=== PATIENT | female | born 1975 | race Two or more races ===

== ENCOUNTER 2025-02-12 20:31 | Inpatient (IN) | payer MEDICAID, OTHER ==
[~2025-02-12] VITALS: Ht 160 cm; Wt 100.8 kg
--- NOTE | 2025-02-12 21:48 | ED.PDOC ---
History of Present Illness HPI Comments 49-year-old female with PMHx DM presents with a chief complaint of dehydration, nausea, and dizziness since Sunday February 09, 2025. Patient is complaining of elevated glucose levels int he 300-400s. Patient is A&Ox4, VSS, RR even and unlabored on RA. Patient reports dyspnea on exertion when going upstairs. She states she has been compliant with metformin, glyburide at home for diabetes. Chief Complaint: Hyperglycemia Time Seen by MD: 21:28 Reviewed Notes: Medications, Allergies Allergies: Coded Allergies: NO KNOWN ALLERGIES (Unverified , 02/12/25) Information Source: Patient Mode of Arrival: Ambulatory Severity: Moderate Timing: Days Duration: Since onset Prehospital treatment: None Vital Signs Vital Signs Date Time Temp Pulse Resp B/P (MAP) Pulse Ox O2 Delivery O2 Flow Rate FiO2 02/12/25 22:16 98.7 79 19 137/87 (104) 97 98.7 Physical Exam General: Awake, alert and oriented. No acute distress. Skin: Skin in warm, dry and intact. Appropriate color for ethnicity. HEENT: The head is normocephalic and atraumatic. Conjunctivae are clear without exudates or hemorrhage. Sclera is non-icteric. EOM are intact. No signs of nystagmus. Eyelids are normal in appearance without swelling or lesions. Oral mucosa is pink and moist Neck: The neck is supple with normal range of motion. No JVD. Cardiac: Heart rate and rhythm are normal. No murmurs, gallops, or rubs are auscultated. Respiratory: No signs of respiratory distress. Lung sounds are clear in all lobes bilaterally without rales, rhonchi, or wheezes. Abdominal: Abdomen is soft, non-tender without distention. Bowel sounds are present and normoactive in all four quadrants. Extremities: Upper and lower extremities are atraumatic in appearance without deformity or edema. Neurological: The patient is awake, alert and oriented to person, place, and time with normal speech. Speech is clear. There is no facial asymmetry. Romberg test positive. Normal pmwnca-st-pejy test. Normal gait. Psychiatric: Appropriate mood and affect. Good judgement and insight. Review of Systems: REVIEW OF SYSTEMS: No fever, no chills, or fatigue HEENT: No sore throat, no earache, no congestion, no neck pain. Positive blurred vision Cardiac: No chest pain. No palpitations. Lungs: Positive dyspnea on exertion, no cough. GI: No nausea, no vomiting, no diarrhea, positive constipation, positive left- sided abdominal pain after fall : No dysuria, positive frequency, no urgency. No hematuria. Musculoskeletal: No joint pain , no joint swelling, no extremity edema. Skin: No rash, no itching. Neuro: Positive headache, positive dizziness, no weakness Psych: Positive trouble sleeping Past Medical History PAST MEDICAL HISTORY: DM Surgical History: Denies all surgeries [employer] History: Denies all [employer] Hx Family History Family History: Reviewed,noncontributory to illness Social History Smoker: Non-Smoker Alcohol: Denies ETOH Use Drugs: Denies Drug Use Lives In: Home Was a procedure done? Was a procedure done?: No EKG EKG : Pulse Rate (adult): 73 [place]: Normal Cardiac Rhythm: NSR Block: None Hypertrophy: None ST: Normal Comments No STEMI Differential Dx Considerations may include: Differential diagnoses considered include but are not limited to cardiac structural disease, arrhythmia, acute coronary syndrome, orthostasis, pulmonary embolism, dissection, seizure, basilar stroke, other. X-Ray, Labs, Meds, VS Vital Signs Date Time Temp Pulse Resp B/P (MAP) Pulse Ox O2 Delivery O2 Flow Rate FiO2 02/12/25 22:16 98.7 79 19 137/87 (104) 97 98.7 02/12/25 22:03 73 02/12/25 21:44 73 02/12/25 20:50 97.8 72 12 120/73 (89) 98 97.8 Lab Test 02/12/25 21:40 02/12/25 21:35 02/12/25 20:56 02/12/25 00:00 Range/Units Blood Gas Specimen Type Arterial Blood Gas Sample Site Right radial Blood Gas Patient Temperature 37.0 Arterial Blood Date Drawn [id number] Arterial Blood pH 7.473 H 7.350-7.450 Arterial Blood Partial Pressure CO2 37.4 32.0-45.0 mmHg Arterial Blood Partial Pressure O2 91.5 83.0-108.0 mmHg Arterial Blood HCO3 26.8 21.0-28.0 mmol/L Arterial Blood Oxygen Saturation 97.1 94.0-98.0 % Arterial Blood Base Excess 3.2 H -2.0-3.0 mmol/L Arterial Blood Oxyhemoglobin 95.8 94.0-98.0 % Arterial Blood Carboxyhemoglobin 1.0 0.5-1.5 % Arterial Blood Methemoglobin 0.3 0.0-1.5 % [place] Test Positive Blood Gas Total Hemoglobin 14.10 12.0-16.0 g/dL Blood Gas Modality Room air Blood Gas Spontaneous Rate 22 FiO2 % 21.0 White Blood Count 5.5 4.4-10.8 10^3/uL Red Blood Count 4.79 4.0-5.20 10^6/uL Hemoglobin 14.3 12.2-16.2 g/dL Hematocrit 42.7 36.0-46.0 % Mean Corpuscular Volume 89.1 80.0-100.0 fL Mean Corpuscular Hemoglobin 29.8 28.0-32.0 pg Mean Corpuscular Hemoglobin Concent 33.5 32.0-36.0 g/dL Red Cell Distribution Width 14.1 11.8-14.3 % Platelet Count 148 140-450 10^3/uL Mean Platelet Volume 8.8 6.9-10.8 fL Neutrophils (%) (Auto) 52.8 37.0-80.0 % Lymphocytes (%) (Auto) 38.8 10.0-50.0 % Monocytes (%) (Auto) 6.8 0.0-12.0 % Eosinophils (%) (Auto) 1.0 0.0-7.0 % Basophils (%) (Auto) 0.6 0.0-2.0 % Neutrophils # (Auto) 2.9 1.6-8.6 10 ^3/uL Lymphocytes # (Auto) 2.1 0.4-5.4 10 ^3/uL Monocytes # (Auto) 0.4 0-1.3 10 ^3/uL Eosinophils # (Auto) 0.1 0-0.8 10 ^3/uL Basophils # (Auto) 0 0-0.2 10 ^3/uL Nucleated Red Blood Cells 0.1 % Sodium Level 136 136-145 mmol/L Potassium Level 5.2 H 3.5-5.1 mmol/L Chloride Level 102 98-107 mmol/L Carbon Dioxide Level 27 20-31 mmol/L Anion Gap 7 5-15 Blood Urea Nitrogen 24 H 9-23 mg/dL Creatinine 1.48 H 0.550-1.02 mg/dL Glomerular Filtration Rate Calc 44 >90 mL/min BUN/Creatinine Ratio 16.2 10.0-20.0 Serum Glucose 391 H 74-106 mg/dL Calcium Level 10.9 H 8.7-10.4 mg/dL Magnesium Level 1.6 1.6-2.6 mg/dL Total Bilirubin 0.2 0.2-1.0 mg/dL Aspartate Amino Transferase (AST) 14 13-40 U/L Alanine Aminotransferase (ALT) 34 7-40 U/L Alkaline Phosphatase 112 46-116 U/L Troponin I High Sensitivity 3 L </=34 ng/L B-Type Natriuretic Peptide 17.88 0-100 pg/mL Total Protein 7.0 5.7-8.2 g/dL Albumin 4.2 3.2-4.8 g/dL Beta-Hydroxybutyric Acid 0.172 < 0.4 mmol/L POC Glucose 374 H 70-106 mg/dl Urine Color Colorless Yellow Urine Clarity Clear Clear Urine pH 7.0 5.0-9.0 Urine Specific [place] 1.020 1.001-1.035 Urine Protein Negative Negative Urine Ketones Negative Negative Urine Blood Negative Negative /uL Urine Nitrite Negative Negative Urine Bilirubin Negative Negative Urine Urobilinogen Normal Negative mg/dL Urine Leukocyte Esterase 2+ Negative /uL Urine RBC 3 0 - 4 /hpf Urine Microscopic WBC 8 H 0-5 /HPF Urine Squamous Epithelial Cells Few <5 /hpf Urine Bacteria None seen None Seen /hpf Urine Glucose 4+ H Normal mg/dL Current Medications Medications (Trade) Dose Ordered Sig/Arik Route Start Time Stop Time Status Last Admin Sodium Chloride 1,000 ml @ 1,000 mls/hr Q1H ONCE IV 02/12/25 21:30 02/12/25 22:29 DC 02/12/25 22:16 Images Reviewed?: Images reviewed and evaluated by me (Independent interpretation of chest x-ray: No acute disease) Time of 1ST Reevaluation: 21:58 Reevaluation 1ST: Unchanged Patient Education/Counseling: Need For Follow Up Family Education/Counseling: No Family Present Departure 1 Departure Time of Disposition: 23:30 Impression: Primary Impression: Hyperkalemia Additional Impressions: Hyperglycemia Acute kidney injury UTI (urinary tract infection) Disposition: ADMITTED INPATIENT Condition: Stable Comments Patient admitted to hospitalist service for further treatment, evaluation and monitoring. Extensive evaluation was performed in attempt to identify or rule out: (See differential diagnosis section) The following tests were ordered, and results were reviewed by me and discussed with patient: (See diagnostic results section) The following test were independently interpreted by me: EKG, chest x-ray I reviewed and agreed with the following test results read by other providers: Chest x-ray I reviewed the following notes from the pt's past medical encounters: N/A Additional information was gathered from interviewing the following independent historians: N/A Discussion of management or test interpretation with external physician/other qualified health youth care worker: N/A Addressed an acute or chronic illness that poses a threat to life or bodily function: Acute kidney injury, hyperglycemia, hyperkalemia Decision regarding hospitalization or escalation of hospital level of care: Risk and benefits of admission for further treatment of patient's condition was considered. Due to patient's current clinical condition, high risk of decline and poor outcome if discharged and need for further inpatient management and monitoring, patient will be admitted to the hospital. Drug therapy requiring intensive monitoring for toxicity: IV insulin Parenteral controlled substances: N/A Decision regarding elective major surgery with identified patient or procedure risk factors: N/A Decision regarding emergency major surgery: N/A Decision not to resuscitate or to de-escalate care because of poor prognosis: N/A Diagnosis or treatment significantly limited by social determinants of health: N/A Critical Care Note Critical Care Time?: No Stability Stability form required: No Heart Score Heart Score: Heart Score Response (Comments) Value History N/A 0 EKG N/A 0 Age N/A 0 Risk Factors N/A 0 Troponin N/A 0 Total 0 I personally scribed for DOUGLAS NICHOLS MD ([facility]) on 02/12/25 at 21:48. Electronically submitted by Chuy Luu ([email or web address]). I personally scribed for DOUGLAS NICHOLS MD ([email or web address]) on 02/12/25 at 22:03. Electronically submitted by Chuy Luu ([email or web address]). DOUGLAS NICHOLS MD February 12, 2025 21:48
[2025-02-12 21:50] LABS: Base Excess 3.2 mmol/L (-2.0-3.0)
[2025-02-12 21:54] LABS: Basophils # (auto) 0 10 ^3/uL (0-0.2); Basophils % (auto) 0.6 % (0.0-2.0); Eosinophils # (auto) 0.1 10 ^3/uL (0-0.8); Hematocrit 42.7 % (36.0-46.0); Hemoglobin 14.3 g/dL (12.2-16.2); Lymphocytes # (auto) 2.1 10 ^3/uL (0.4-5.4); Lymphocytes % (auto) 38.8 % (10.0-50.0); Mean Corpuscular Hemoglobin 29.8 pg (28.0-32.0); Mean Corpuscular Hgb Conc. 33.5 g/dL (32.0-36.0); Mean Corpuscular Volume 89.1 fL (80.0-100.0); Monocytes # (auto) 0.4 10 ^3/uL (0-1.3); Monocytes % (auto) 6.8 % (0.0-12.0); Neutrophils # (auto) 2.9 10 ^3/uL (1.6-8.6); Neutrophils % (auto) 52.8 % (37.0-80.0); Nucleated Red Blood Cells % 0.1 %; Platelet Count (auto) 148 10^3/uL (140-450); Red Blood Cells 4.79 10^6/uL (4.0-5.20); Red Cell Distribution Width 14.1 % (11.8-14.3); White Blood Cell 5.5 10^3/uL (4.4-10.8)
[2025-02-12 21:56] LABS: Urine Bacteria None Seen /hpf (None Seen)
[2025-02-12 22:04] LABS: Alanine Aminotransferase 34 U/L (7-40); Albumin 4.2 g/dL (3.2-4.8); Alkaline Phosphatase 112 U/L (46-116); Anion Gap 7 (5-15); Aspartate Aminotransferase 14 U/L (13-40); BUN/Creatinine Ratio 16.2 (10.0-20.0); Carbon Dioxide 27 mmol/L (20-31); Chloride 102 mmol/L (98-107); Magnesium 1.6 mg/dL (1.6-2.6); Sodium 136 mmol/L (136-145)
[2025-02-12 22:08] LABS: Bilirubin, Total 0.2 mg/dL (0.2-1.0); Blood Urea Nitrogen 24 mg/dL (9-23); Calcium 10.9 mg/dL (8.7-10.4); Glucose 391 mg/dL (74-106); Potassium 5.2 mmol/L (3.5-5.1)
[2025-02-12 22:09] LABS: Urine Blood Negative /uL (Negative); Urine Clarity Clear (Clear); Urine Color Colorless (Yellow); Urine Protein, UAD Negative (Negative); Urine Squamous Epithelial Cell FEW /hpf (<5); Urine Urobilinogen Normal (Negative); Urine WBC 8 /HPF (0-5)
--- NOTE | 2025-02-12 22:13 | DVH ---
CHEST RADIOGRAPH Indication: SHORTNESS OF BREATH WITH EXERTION Technique: Single frontal view of the chest was obtained COMPARISON: None FINDINGS: Lines and Tubes: None Lungs: Clear Pleura: No effusion. No pneumothorax. Cardiomediastinal contours: Unremarkable Bones: Unremarkable IMPRESSION: No abnormality.
[2025-02-12] MEDS: SODIUM CHLORIDE 0.9% 1,000 ML IV ONE (22:16)
[2025-02-12] MEDS: ACCU-CHEK COMFORT CURVE STRIP VI STA (23:36)
[2025-02-12] MEDS: InsuLIN REG 1unit/0.01ml Soln (100units/ml) IV ONE (23:45)
[2025-02-12] MEDS: DEXTROSE (50%) 50ML SYRG IV ONE (23:45)
[2025-02-13] MEDS ORDERED: MORPHINE SULFATE INJ 2 MG/ml SYRG IV PRN
[2025-02-13] MEDS: InsuLIN REG 1unit/0.01ml Soln (100units/ml) SC SCH
[2025-02-13] MEDS ORDERED: NITROGLYCERIN 0.4 MG SL TAB SL PRN
[2025-02-13] MEDS ORDERED: ACETAMINOPHEN 325 MG TAB PO PRN
[2025-02-13] MEDS ORDERED: DEXTROSE (50%) 50ML SYRG IV PRN
[2025-02-13] MEDS: ACCU-CHEK COMFORT CURVE STRIP VI SCH
[2025-02-13] MEDS ORDERED: ONDANSETRON HCL 4 MG/2 ML VIAL IV PRN
[2025-02-13] MEDS: DEXTROSE (50%) 50ML SYRG IV ONE (00:43)
[2025-02-13] MEDS: CEFEPIME 1GM/ 50ML 50 ML IV ONE (00:54)
[2025-02-13] MEDS: SODIUM CHLORIDE 0.9% 1,000 ML IV ONE ×2 (00:54→00:55)
[2025-02-13] MEDS: ACCU-CHEK COMFORT CURVE STRIP VI ONE (01:00)
--- NOTE | 2025-02-13 01:20 | DVHHP2 ---
History of Present Illness Reason for Visit: Generalized weakness History of Present Illness 49-year-old female presents for evaluation of generalized weakness. Patient reports a three day history of having elevated blood sugars greater than 400. She states feeling dehydrated and dizzy with fatigue as well. She reports frequ ent urination. Denies dysuria or hematuria. No abdominal pain, nausea or vomiting. No cardiac or respiratory symptoms. Past Medical History Hypertension diabetes mellitus Past Surgical History Denies Family History Noncontributory Smoke: No (Impression) ALCOHOL: none Drugs: None (CT without) Lives: with Family Review of Systems Review of Systems Review of systems are currently negative otherwise addressed in HPI. Allergies: Coded Allergies: NO KNOWN ALLERGIES (Unverified , 02/12/25) Medications Current Medications Medications Dose Ordered Sig/Arik Route Start Time Stop Time Status Last Admin Dose Admin Ceftriaxone Sodium 50 ml @ 100 mls/hr DAILY@09 IV 02/13/25 09:00 Losartan Potassium 25 mg DAILY PO 02/13/25 10:00 Diagnostic Test (Pha) 1 strip IQ4HR 02/13/25 00:00 02/13/25 00:00 1 STRIP Insulin Human Regular IQ4HR SC 02/13/25 00:00 Dextrose 50 ml UD PRN IV 02/13/25 00:00 Ondansetron HCl 4 mg Q4HP PRN IV 02/13/25 00:00 Acetaminophen 650 mg Q6HP PRN PO 02/13/25 00:00 Nitroglycerin 0.4 mg Q5MINP PRN SL 02/13/25 00:00 Morphine Sulfate 2 mg Q30M PRN IV 02/13/25 00:00 Exam Vital Signs Vital Signs Date Time Temp Pulse Resp B/P (MAP) Pulse Ox O2 Delivery O2 Flow Rate FiO2 02/13/25 00:13 70 20 96 Room Air 02/13/25 00:13 97.9 125/74 (91) 97.9 Exam Gen: 49-year-old female who arachnoid hemorrhage noted in mild distress Skin: Warm, dry, normal color and texture, no rash. HEENT: Normocephalic atraumatic, mucous membranes moist and pink. Neck: Cervical and supraclavicular nodes normal without enlargement, trachea is midline, thyroid gland is normal without masses. Pulmonary: Clear to auscultation and percussion bilaterally. Cardiac: Regular rate and rhythm. No murmur Abdomen: Soft, nontender, nondistended, bowel sounds present all 4 quadrants, no guarding, no rigidity, no organomegaly. Extremities: No cyanosis, clubbing, no edema Neuro: Cranial nerves II through XII grossly intact, normal affect and speech, no focal motor deficits. Labs/Xrays ORDERING PHYSICIAN: DOUGLAS NICHOLS MD PROCEDURE(s): CXR1 - CHEST XRAY 1 VIEW REASON: SHORTNESS OF BREATH WITH EXERTION ORDER NUMBER(s): [id number], ACCESSION NUMBER(s): [id number] CHEST RADIOGRAPH Indication: SHORTNESS OF BREATH WITH EXERTION Technique: Single frontal view of the chest was obtained COMPARISON: None FINDINGS: Lines and Tubes: None Lungs: Clear Pleura: No effusion. No pneumothorax. Cardiomediastinal contours: Unremarkable Bones: Unremarkable IMPRESSION: No abnormality. Labs Test 02/12/25 21:40 02/12/25 21:35 02/12/25 20:56 02/12/25 00:00 Range/Units Blood Gas Specimen Type Arterial Blood Gas Sample Site Right radial Blood Gas Patient Temperature 37.0 Arterial Blood Date Drawn [id number] Arterial Blood pH 7.473 H 7.350-7.450 Arterial Blood Partial Pressure CO2 37.4 32.0-45.0 mmHg Arterial Blood Partial Pressure O2 91.5 83.0-108.0 mmHg Arterial Blood HCO3 26.8 21.0-28.0 mmol/L Arterial Blood Oxygen Saturation 97.1 94.0-98.0 % Arterial Blood Base Excess 3.2 H -2.0-3.0 mmol/L Arterial Blood Oxyhemoglobin 95.8 94.0-98.0 % Arterial Blood Carboxyhemoglobin 1.0 0.5-1.5 % Arterial Blood Methemoglobin 0.3 0.0-1.5 % [place] Test Positive Blood Gas Total Hemoglobin 14.10 12.0-16.0 g/dL Blood Gas Modality Room air Blood Gas Spontaneous Rate 22 FiO2 % 21.0 White Blood Count 5.5 4.4-10.8 10^3/uL Red Blood Count 4.79 4.0-5.20 10^6/uL Hemoglobin 14.3 12.2-16.2 g/dL Hematocrit 42.7 36.0-46.0 % Mean Corpuscular Volume 89.1 80.0-100.0 fL Mean Corpuscular Hemoglobin 29.8 28.0-32.0 pg Mean Corpuscular Hemoglobin Concent 33.5 32.0-36.0 g/dL Red Cell Distribution Width 14.1 11.8-14.3 % Platelet Count 148 140-450 10^3/uL Mean Platelet Volume 8.8 6.9-10.8 fL Neutrophils (%) (Auto) 52.8 37.0-80.0 % Lymphocytes (%) (Auto) 38.8 10.0-50.0 % Monocytes (%) (Auto) 6.8 0.0-12.0 % Eosinophils (%) (Auto) 1.0 0.0-7.0 % Basophils (%) (Auto) 0.6 0.0-2.0 % Neutrophils # (Auto) 2.9 1.6-8.6 10 ^3/uL Lymphocytes # (Auto) 2.1 0.4-5.4 10 ^3/uL Monocytes # (Auto) 0.4 0-1.3 10 ^3/uL Eosinophils # (Auto) 0.1 0-0.8 10 ^3/uL Basophils # (Auto) 0 0-0.2 10 ^3/uL Nucleated Red Blood Cells 0.1 % Sodium Level 136 136-145 mmol/L Potassium Level 5.2 H 3.5-5.1 mmol/L Chloride Level 102 98-107 mmol/L Carbon Dioxide Level 27 20-31 mmol/L Anion Gap 7 5-15 Blood Urea Nitrogen 24 H 9-23 mg/dL Creatinine 1.48 H 0.550-1.02 mg/dL Glomerular Filtration Rate Calc 44 >90 mL/min BUN/Creatinine Ratio 16.2 10.0-20.0 Serum Glucose 391 H 74-106 mg/dL Calcium Level 10.9 H 8.7-10.4 mg/dL Magnesium Level 1.6 1.6-2.6 mg/dL Total Bilirubin 0.2 0.2-1.0 mg/dL Aspartate Amino Transferase (AST) 14 13-40 U/L Alanine Aminotransferase (ALT) 34 7-40 U/L Alkaline Phosphatase 112 46-116 U/L Troponin I High Sensitivity 3 L </=34 ng/L B-Type Natriuretic Peptide 17.88 0-100 pg/mL Total Protein 7.0 5.7-8.2 g/dL Albumin 4.2 3.2-4.8 g/dL Beta-Hydroxybutyric Acid 0.172 < 0.4 mmol/L POC Glucose 374 H 70-106 mg/dl Urine Color Colorless Yellow Urine Clarity Clear Clear Urine pH 7.0 5.0-9.0 Urine Specific [place] 1.020 1.001-1.035 Urine Protein Negative Negative Urine Ketones Negative Negative Urine Blood Negative Negative /uL Urine Nitrite Negative Negative Urine Bilirubin Negative Negative Urine Urobilinogen Normal Negative mg/dL Urine Leukocyte Esterase 2+ Negative /uL Urine RBC 3 0 - 4 /hpf Urine Microscopic WBC 8 H 0-5 /HPF Urine Squamous Epithelial Cells Few <5 /hpf Urine Bacteria None seen None Seen /hpf Urine Glucose 4+ H Normal mg/dL Assessment/Plan Assessment/Plan Assessment Uncontrolled diabetes mellitus more Acute kidney injury Urinary tract infection Dehydration Plan Admit the patient to [facility] [place] the hospitalist Maintenance IV fluids Rocephin Q.4 hour Accu-Cheks with moderate coverage Continue treatment per orders. Plan discussed with: Patient My Orders Orders - NEEMA NUNN AGACNP Procedure Category Date Status Time Ceftriaxone 1gm/50ml PHA 02/13/25 In Process D5w (Rocephin) 09:00 Sodium Chloride 0.9% PHA 02/13/25 In Process 00:00 Losartan Tablet PHA 02/13/25 In Process (Cozaar Tablet) 10:00 Glucose Blood PHA 02/13/25 In Process (Accu-Chek Comfort 00:00 Insulin R (Human) PHA 02/13/25 In Process (Insulin R) 00:00 Dextrose 50% Syringe PHA 02/13/25 In Process 00:00 Admit ADMIT 02/12/25 Transmitted 23:50 Ondansetron Hcl PHA 02/13/25 In Process (Zofran) 00:00 Condition: Stable MARGARITA 02/12/25 In Process 23:50 Acetaminophen Tablet PHA 02/13/25 In Process (Tylenol Tablet) 00:00 Bedrest With Bathroom MARGARITA 02/12/25 In Process Privileg 23:50 Nitroglycerin PHA 02/13/25 In Process Sublingual (Ntrostat 00:00 Morphine Sulfate PHA 02/13/25 In Process Injection 00:00 Stat Ekg For Chest MARGARITA 02/12/25 In Process Pain 23:50 Notify Md Of Changes [facility] 02/12/25 In Process From Base 23:50 Log Deckman For [facility] 02/12/25 In Process 24 Hours 23:50 Emergency Dysrhythmia [facility] 02/12/25 In Process Protocol 23:50 Rhythm Strips Once [facility] 02/12/25 In Process Every Shift 23:50 Oxygen By Nasal RT 02/12/25 Transmitted Cannula 23:50 Date of Service: February 12, 2025 Billing Provider: NEEMA NUNN Common Visit Codes: [id number] INP/OBS CARE (MOD) NEEMA NUNN February 13, 2025 01:20
[2025-02-13 02:09] VITALS: PULSE 69; RESP 12; O2SAT 97
--- NOTE | 2025-02-13 06:58 | ECG ---
[facility] Test Date: 2025-02-12 Test Time: 21:44:39 Pat Name: JOSÉ ROBLES Department: ED Room: [facility]24[facility] Gender: F Drive Thru Order Taker: lul : 1975 Requested By: DOUGLAS NICHOLS Order Number: [id number] Reading MD: Gilmer Pina Measurements Intervals [place] Rate: 73 P: 45 [place]: 147 QRS: -11 QRSD: 82 T: 19 QT: 372 QTc: 410 Interpretive Statements Sinus rhythm Low voltage, precordial leads Consider anterior infarct Electronically Signed On 02-15-2025 20:47:13 PDT by Gilmer Pina Please click the below link to view image of tracing.
[2025-02-13] MEDS: cefTRIAXone 1GM/50ML D5W 50 ML IV SCH (08:10)
[2025-02-13] MEDS: LOSARTAN POTASSIUM 25 MG TAB PO SCH (11:30)
--- NOTE | 2025-02-13 15:01 | DVHPN2 ---
Subjective 49-year-old female came for elevated blood glucose and frequent urination and dizziness Changes from previous H/P or p: Changes Objective Vitals Vital Signs Date Time Temp Pulse Resp B/P (MAP) Pulse Ox O2 Delivery O2 Flow Rate FiO2 02/13/25 11:31 87 15 110/67 (81) 98 02/13/25 07:34 97.3 97.3 02/13/25 02:09 Room Air* 0 21 Intake/Output Intake and Output 02/13/25 07:00 Intake Total 1650.0 ml Balance 1650.0 ml Intake IV Total 1650.0 ml General Appearance: Alert, Oriented X3, Cooperative, No acute distress Lungs: Clear to auscultation, Normal air movement Cardiovascular: Regular rate, Normal S1, Normal S2 Abdomen: Normal bowel sounds, Soft, No tenderness Extremities: No edema Medications Current Medications Medications Dose Ordered Sig/Arik Route Start Time Stop Time Status Last Admin Dose Admin Ceftriaxone Sodium 50 ml @ 100 mls/hr DAILY@09 IV 02/13/25 09:00 02/13/25 08:10 100 MLS/HR Losartan Potassium 25 mg DAILY PO 02/13/25 10:00 Diagnostic Test (Pha) 1 strip IQ4HR 02/13/25 00:00 02/13/25 08:00 1 STRIP Insulin Human Regular IQ4HR SC 02/13/25 00:00 02/13/25 07:57 3 UNITS Dextrose 50 ml UD PRN IV 02/13/25 00:00 Ondansetron HCl 4 mg Q4HP PRN IV 02/13/25 00:00 Acetaminophen 650 mg Q6HP PRN PO 02/13/25 00:00 Nitroglycerin 0.4 mg Q5MINP PRN SL 02/13/25 00:00 Morphine Sulfate 2 mg Q30M PRN IV 02/13/25 00:00 Laboratory Results Laboratory Tests 02/12/25 21:35 Chemistry Test 02/12/25 21:35 Albumin 4.2 g/dL (3.2-4.8) Calcium Level 10.9 mg/dL (8.7-10.4) H Magnesium Level 1.6 mg/dL (1.6-2.6) Total Protein 7.0 g/dL (5.7-8.2) Cardiac Markers Test 02/12/25 21:35 B-Type Natriuretic Peptide 17.88 pg/mL (0-100) LFT Test 02/12/25 21:35 Alanine Aminotransferase (ALT) 34 U/L (7-40) Alkaline Phosphatase 112 U/L (46-116) Aspartate Amino Transferase (AST) 14 U/L (13-40) Total Bilirubin 0.2 mg/dL (0.2-1.0) Urinalysis Test 02/12/25 00:00 Urine Color Colorless (Yellow) Urine Clarity Clear (Clear) Urine pH 7.0 (5.0-9.0) Urine Specific [place] 1.020 (1.001-1.035) Urine Protein Negative (Negative) Urine Ketones Negative (Negative) Urine Blood Negative /uL (Negative) Urine Nitrite Negative (Negative) Urine Bilirubin Negative (Negative) Urine Urobilinogen Normal mg/dL (Negative) Urine Leukocyte Esterase 2+ /uL (Negative) Urine RBC 3 /hpf (0 - 4) Urine Microscopic WBC 8 /HPF (0-5) H Urine Squamous Epithelial Cells Few /hpf (<5) Urine Bacteria None seen /hpf (None Seen) Urine Glucose 4+ mg/dL (Normal) H Blood Gas Results Test 02/12/25 21:40 Arterial Blood pH 7.473 (7.350-7.450) FiO2 % 21.0 Assessment/Plan Assessment/Plan Uncontrolled diabetes type 2 Hyperkalemia Acute kidney injury Hypertension Morbid obesity UTI Plan Start IV fluids normal saline Rocephin IV for the UTI Accu-Cheks Start Lantus insulin Recheck her electrolytes including potassium and magnesium and replace as needed Check hemoglobin A1c in the morning again Monitor closely Full code Advance directives discussed for 18 minutes Plan discussed with: Patient My Orders Orders - POLA COLLADO MD Procedure Category Date Status Time Basic Metabolic Panel LAB 02/13/25 Logged 14:48 Magnesium LAB 02/13/25 Logged 14:48 Date of Service: February 13, 2025 Billing Provider: POLA COLLADO MD Common Visit Codes: [id number] INP/OBS CARE(HIGH) Secondary Visit Codes: [id number] CARE PLAN 30 MINUTES POLA COLLADO MD February 13, 2025 15:01
[2025-02-13 15:37] LABS: Chloride 103 mmol/L (98-107); Potassium 4.9 mmol/L (3.5-5.1); Sodium 138 mmol/L (136-145)
[2025-02-13 15:38] LABS: Anion Gap 7 (5-15); Carbon Dioxide 28 mmol/L (20-31)
[2025-02-13 15:43] LABS: BUN/Creatinine Ratio 23.4 (10.0-20.0)
[2025-02-13 15:44] LABS: Blood Urea Nitrogen 25 mg/dL (9-23); Calcium 10.6 mg/dL (8.7-10.4); Glucose 319 mg/dL (74-106); Magnesium 1.5 mg/dL (1.6-2.6)
[2025-02-13 17:00] VITALS: BP 121/79; PULSE 65; RESP 18; TEMP 98.1; O2SAT 99
[2025-02-13 18:10] VITALS: BP 121/79; PULSE 65; RESP 18; TEMP 98.1; O2SAT 99
[2025-02-13] MEDS: SODIUM CHLORIDE 0.9% 1,000 ML IV SCH (18:17)
[2025-02-13] MEDS: MAGNESIUM SULFATE 1GM/100ML 100 ML IV SCH (18:17)
[2025-02-13] MEDS: INSULIN LANTUS (GLARGINE) 1 /0.01ml (100units/ml) SC ONE (18:18)
[2025-02-13 21:00] VITALS: BP 116/69; PULSE 68; RESP 18; TEMP 97.1; O2SAT 97
[2025-02-13] MEDS: INSULIN LANTUS (GLARGINE) 1 /0.01ml (100units/ml) SC SCH (21:40)
[2025-02-14 01:00] VITALS: BP 124/67; PULSE 61; RESP 17; TEMP 97.7; O2SAT 93
[2025-02-14 05:00] VITALS: BP 109/68; PULSE 56; RESP 17; TEMP 97.2; O2SAT 98
[2025-02-14 07:53] LABS: Potassium 4.1 mmol/L (3.5-5.1); Sodium 142 mmol/L (136-145)
[2025-02-14 07:54] LABS: Anion Gap 5 (5-15); Calcium 9.6 mg/dL (8.7-10.4); Carbon Dioxide 28 mmol/L (20-31)
[2025-02-14 07:59] LABS: BUN/Creatinine Ratio 24.1 (10.0-20.0); Blood Urea Nitrogen 20 mg/dL (9-23); Glucose 103 mg/dL (74-106)
[2025-02-14 08:00] LABS: Magnesium 1.7 mg/dL (1.6-2.6)
[2025-02-14 08:06] LABS: Chloride 109 mmol/L (98-107)
[2025-02-14 09:00] VITALS: BP 117/69; PULSE 60; RESP 16; TEMP 97.5; O2SAT 98
--- NOTE | 2025-02-14 10:33 | DVHPN2 ---
Subjective She is feeling better Blood sugar is better Hemoglobin A1c came at 9.0 Changes from previous H/P or p: Changes Objective Vitals Vital Signs Date Time Temp Pulse Resp B/P (MAP) Pulse Ox O2 Delivery O2 Flow Rate FiO2 02/14/25 09:00 97.5 60 16 117/69 (85) 98 97.5 02/14/25 08:00 Room Air* 0 21 Intake/Output Intake and Output 02/14/25 07:00 Intake Total 1940 ml Balance 1940 ml Intake Oral 940 ml IV Total 1000 ml # Voids 4 # Bowel Movements 1 General Appearance: Alert, Oriented X3, Cooperative, No acute distress Lungs: Clear to auscultation, Normal air movement Cardiovascular: Regular rate, Normal S1, Normal S2 Abdomen: Normal bowel sounds, Soft, No tenderness Extremities: No edema Medications Current Medications Medications Dose Ordered Sig/Arik Route Start Time Stop Time Status Last Admin Dose Admin Ceftriaxone Sodium 50 ml @ 100 mls/hr DAILY@09 IV 02/13/25 09:00 02/14/25 08:31 100 MLS/HR Diagnostic Test (Pha) 1 strip IQ4HR 02/13/25 00:00 02/14/25 08:31 1 STRIP Insulin Human Regular IQ4HR SC 02/13/25 00:00 02/14/25 08:35 2 UNITS Dextrose 50 ml UD PRN IV 02/13/25 00:00 Ondansetron HCl 4 mg Q4HP PRN IV 02/13/25 00:00 Acetaminophen 650 mg Q6HP PRN PO 02/13/25 00:00 Nitroglycerin 0.4 mg Q5MINP PRN SL 02/13/25 00:00 Morphine Sulfate 2 mg Q30M PRN IV 02/13/25 00:00 Sodium Chloride 1,000 ml @ 100 mls/hr Q10H IV 02/13/25 15:00 02/14/25 06:48 100 MLS/HR Insulin Glargine 10 units BID@0700,2200 SC 02/13/25 22:00 02/14/25 06:47 10 UNITS Laboratory Results Laboratory Tests 02/12/25 21:35 02/14/25 06:40 Chemistry Test 02/13/25 15:05 02/14/25 06:40 Calcium Level 10.6 mg/dL (8.7-10.4) H 9.6 mg/dL (8.7-10.4) Magnesium Level 1.5 mg/dL (1.6-2.6) L 1.7 mg/dL (1.6-2.6) HgA1c, TSH Test 02/14/25 06:40 Hemoglobin A1c 9.0 % A1C (<5.7) H Thyroid Stimulating Hormone (TSH) 2.76 uIU/mL (0.55-4.78) Urinalysis Test 02/12/25 00:00 Urine Color Colorless (Yellow) Urine Clarity Clear (Clear) Urine pH 7.0 (5.0-9.0) Urine Specific [place] 1.020 (1.001-1.035) Urine Protein Negative (Negative) Urine Ketones Negative (Negative) Urine Blood Negative /uL (Negative) Urine Nitrite Negative (Negative) Urine Bilirubin Negative (Negative) Urine Urobilinogen Normal mg/dL (Negative) Urine Leukocyte Esterase 2+ /uL (Negative) Urine RBC 3 /hpf (0 - 4) Urine Microscopic WBC 8 /HPF (0-5) H Urine Squamous Epithelial Cells Few /hpf (<5) Urine Bacteria None seen /hpf (None Seen) Urine Glucose 4+ mg/dL (Normal) H Assessment/Plan Assessment/Plan Uncontrolled diabetes type 2 Hyperkalemia Acute kidney injury due to vasomotor nephropathy Dehydration Hypertension Morbid obesity UTI Plan Start IV fluids normal saline Rocephin IV for the UTI Accu-Cheks Start Lantus insulin Recheck her electrolytes including potassium and magnesium and replace as needed Check hemoglobin A1c in the morning again Monitor closely Full code Advance directives discussed for 18 minutes 02/14/2025: Hypomagnesemia: Replace p.o. Continue Rocephin for UTI IV fluids for dehydration and SYLWIA Continue insulin while she is in the hospital The patient is hesitant to go on insulin at home and she would like to continue oral medications for her diabetes which she takes metformin and glimepiride at home in addition to Trulicity Keep the patient here 1 more day in the hospital and discharge planning for tomorrow Plan discussed with: Patient My Orders Orders - POLA COLLADO MD Procedure Category Date Status Time Sodium Chloride 0.9% PHA 02/13/25 In Process 15:00 Insulin Lantus PHA 02/13/25 In Process (Glargine) (Lantus) 22:00 Code Status CODE 02/13/25 Transmitted 15:01 Consistent DIET 02/13/25 Transmitted Carb([facility])Diabetes Dinner Date of Service: February 14, 2025 Billing Provider: POLA COLLADO MD Common Visit Codes: [id number] INP/OBS CARE(HIGH) POLA COLLADO MD February 14, 2025 10:33
[2025-02-14] MEDS: MAGNESIUM OXIDE 400 MG TAB PO ONE (11:35)
[2025-02-14 13:00] VITALS: BP 121/81; PULSE 63; RESP 20; TEMP 97.9; O2SAT 98
[2025-02-14 17:12] VITALS: BP 137/83; PULSE 67; RESP 18; TEMP 97.8; O2SAT 97
[2025-02-14 21:00] VITALS: BP 113/81; PULSE 66; RESP 17; TEMP 98.1; O2SAT 100
[2025-02-15 01:00] VITALS: BP 128/71; PULSE 67; RESP 19; TEMP 98.1; O2SAT 97
[2025-02-15 05:00] VITALS: BP_SYST 135; BP_SYST 97; BP_DIAS 56; BP_DIAS 71; PULSE 68; RESP 17; TEMP 98.1; O2SAT 97
[2025-02-15 09:00] VITALS: BP 129/80; PULSE 61; RESP 17; TEMP 97.8; O2SAT 96
[2025-02-15] MEDS ORDERED: NITR-87 PO (11:48)
--- NOTE | 2025-02-15 11:50 | DVHDS2 ---
Discharge Summary Date of Admission February 12, 2025 at 23:50 Date of Discharge: February 15, 2025 Labs/Diagnostic Data: Laboratory Results Test 02/15/25 06:17 02/14/25 06:40 02/12/25 21:40 02/12/25 21:35 POC Glucose 94 mg/dl (70-106) Sodium Level 142 mmol/L (136-145) Potassium Level 4.1 mmol/L (3.5-5.1) Chloride Level 109 mmol/L (98-107) Carbon Dioxide Level 28 mmol/L (20-31) Anion Gap 5 (5-15) Blood Urea Nitrogen 20 mg/dL (9-23) Creatinine 0.83 mg/dL (0.550-1.02) Glomerular Filtration Rate Calc 87 mL/min (>90) BUN/Creatinine Ratio 24.1 (10.0-20.0) Serum Glucose 103 mg/dL (74-106) Hemoglobin A1c 9.0 % A1C (<5.7) Calcium Level 9.6 mg/dL (8.7-10.4) Magnesium Level 1.7 mg/dL (1.6-2.6) Thyroid Stimulating Hormone (TSH) 2.76 uIU/mL (0.55-4.78) Blood Gas Specimen Type Arterial Blood Gas Sample Site Right radial Blood Gas Patient Temperature 37.0 Arterial Blood Date Drawn [id number] Arterial Blood pH 7.473 (7.350-7.450) Arterial Blood Partial Pressure CO2 37.4 mmHg (32.0-45.0) Arterial Blood Partial Pressure O2 91.5 mmHg (83.0-108.0) Arterial Blood HCO3 26.8 mmol/L (21.0-28.0) Arterial Blood Oxygen Saturation 97.1 % (94.0-98.0) Arterial Blood Base Excess 3.2 mmol/L (-2.0-3.0) Arterial Blood Oxyhemoglobin 95.8 % (94.0-98.0) Arterial Blood Carboxyhemoglobin 1.0 % (0.5-1.5) Arterial Blood Methemoglobin 0.3 % (0.0-1.5) [place] Test Positive Blood Gas Total Hemoglobin 14.10 g/dL (12.0-16.0) Blood Gas Modality Room air Blood Gas Spontaneous Rate 22 FiO2 % 21.0 White Blood Count 5.5 10^3/uL (4.4-10.8) Red Blood Count 4.79 10^6/uL (4.0-5.20) Hemoglobin 14.3 g/dL (12.2-16.2) Hematocrit 42.7 % (36.0-46.0) Mean Corpuscular Volume 89.1 fL (80.0-100.0) Mean Corpuscular Hemoglobin 29.8 pg (28.0-32.0) Mean Corpuscular Hemoglobin Concent 33.5 g/dL (32.0-36.0) Red Cell Distribution Width 14.1 % (11.8-14.3) Platelet Count 148 10^3/uL (140-450) Mean Platelet Volume 8.8 fL (6.9-10.8) Neutrophils (%) (Auto) 52.8 % (37.0-80.0) Lymphocytes (%) (Auto) 38.8 % (10.0-50.0) Monocytes (%) (Auto) 6.8 % (0.0-12.0) Eosinophils (%) (Auto) 1.0 % (0.0-7.0) Basophils (%) (Auto) 0.6 % (0.0-2.0) Neutrophils # (Auto) 2.9 10 ^3/uL (1.6-8.6) Lymphocytes # (Auto) 2.1 10 ^3/uL (0.4-5.4) Monocytes # (Auto) 0.4 10 ^3/uL (0-1.3) Eosinophils # (Auto) 0.1 10 ^3/uL (0-0.8) Basophils # (Auto) 0 10 ^3/uL (0-0.2) Nucleated Red Blood Cells 0.1 % Total Bilirubin 0.2 mg/dL (0.2-1.0) Aspartate Amino Transferase (AST) 14 U/L (13-40) Alanine Aminotransferase (ALT) 34 U/L (7-40) Alkaline Phosphatase 112 U/L (46-116) Troponin I High Sensitivity 3 ng/L (</=34) B-Type Natriuretic Peptide 17.88 pg/mL (0-100) Total Protein 7.0 g/dL (5.7-8.2) Albumin 4.2 g/dL (3.2-4.8) Beta-Hydroxybutyric Acid 0.172 mmol/L (< 0.4) Test 02/12/25 00:00 Urine Color Colorless (Yellow) Urine Clarity Clear (Clear) Urine pH 7.0 (5.0-9.0) Urine Specific [place] 1.020 (1.001-1.035) Urine Protein Negative (Negative) Urine Ketones Negative (Negative) Urine Blood Negative /uL (Negative) Urine Nitrite Negative (Negative) Urine Bilirubin Negative (Negative) Urine Urobilinogen Normal mg/dL (Negative) Urine Leukocyte Esterase 2+ /uL (Negative) Urine RBC 3 /hpf (0 - 4) Urine Microscopic WBC 8 /HPF (0-5) Urine Squamous Epithelial Cells Few /hpf (<5) Urine Bacteria None seen /hpf (None Seen) Urine Glucose 4+ mg/dL (Normal) Other Laboratory Tests 02/14/25 06:40 02/12/25 21:35 Brief Hx & Hospital Course: Final diagnoses: Uncontrolled diabetes type 2 Hyperkalemia Acute kidney injury due to vasomotor nephropathy Dehydration Hypertension Morbid obesity UTI 49-year-old admitted for frequent urination and acute kidney injury and dehydration and UTI She was treated with IV fluids She was also given insulin here to treat her diabetes and blood sugar and she did okay She is feeling better now She says she does not want to go on insulin, she wants to continue to try to lose weight and take metformin and glimepiride for now I instructed the patient that if her blood glucose does not get better in the next 1-2 weeks to go see her primary care physician to discuss going on insulin again as she required that in the past Continue current home medications For the UTI she will take Macrobid 100 mg twice a day for 5 days Follow up with her primary care physician as soon as possible Condition at Discharge: Stable Final Diagnosis/Problems List Uncontrolled diabetes type 2 Hyperkalemia Acute kidney injury due to vasomotor nephropathy Dehydration Hypertension Morbid obesity UTI Discharge Disposition: Home SNF Discharge Will this Physician continue t: No Discharge Statement: "Patient was advised to return to the ER or call 911 if any headaches, dizziness, shortness of breath, chest pain, abdominal pain, bleeding, fevers, or worsening of medical condition. Patient was counseled about treatment plan, medications, possible side effects, patientverbalized understanding. All questions were answered to the best of my ability. This discharge took greater then 30 minutes in planning, reviewing documentation, counseling the patient, and discussing with other team members." ASSESSMENT ASSESSMENT Assessment Date of Service: February 15, 2025 Billing Provider: POLA COLLADO MD Common Visit Codes: [id number] DISCH DAY >30min POLA COLLADO MD February 15, 2025 11:50
[2025-02-15 13:00] VITALS: BP 136/80; PULSE 62; RESP 17; TEMP 98.1; O2SAT 95
== END 2025-02-15 15:40 | disposition home or self-care (01) | DRG 422 ==
LOC: ER 20:31 → OVERFLOW 23:50 → EAST 02-13 16:35
PROVIDERS: ADMIT Internal Medicine Geriatric Medicine; ATTEND Internal Medicine Geriatric Medicine
DX: E86.0 Dehydration (principal); N17.0 Acute kidney failure with tubular necrosis; E11.65 Type 2 diabetes mellitus with hyperglycemia; E87.5 Hyperkalemia; N39.0 Urinary tract infection, site not specified; E66.01 Morbid (severe) obesity due to excess calories; I10 Essential (primary) hypertension; E83.42 Hypomagnesemia; Z68.37 Body mass index [BMI] 37.0-37.9, adult; Z79.84 Long term (current) use of oral hypoglycemic drugs
CPT/HCPCS: 36415; 36600; 71045; 80048; 80053; 81001; 82010; 82805; 82962; 83036; 83735; 83880; 84443; 84484; 85025; 93005; 96361; 96374; G0378; J1815